=== PATIENT | male | born 1945 | race Caucasian/White ===

== ENCOUNTER 2020-05-30 11:41 | Outpatient (CLI) | payer MEDICARE, SELFPAY ==
[2020-05-30 11:59] LABS: Basophils Absolute Auto 0.02 K/mm3 (0.00-0.10); Basophils Percent Auto 0.3 % (0.0-1.0); Eosinophils Absolute Auto 0.03 K/mm3 (0.02-0.50); Eosinophils Percent Auto 0.5 % (1.0-6.0); Hematocrit 41.3 % (37.0-46.0); Hemoglobin 14.4 g/dL (12.4-15.3); Immature Granulocyte Absolute 0.05 K/mm3 (0.00-0.00); Immature Granulocyte Percent A 0.8 % (0.0-0.0); Lymphocytes Absolute Auto 1.12 K/mm3 (1.10-4.50); Lymphocytes Percent Auto 17.7 % (18.0-42.0); Mean Corpuscular HGB Conc 34.9 g/dL (32.0-36.0); Mean Corpuscular Hemoglobin 32.7 pg (27.0-31.0); Mean Corpuscular Volume 93.7 fL (78.0-102.0); Mean Platelet Volume 10.8 fl (8.7-11.0); Monocytes Absolute Auto 0.77 K/mm3 (0.10-0.90); Monocytes Percent Auto 12.2 % (2.0-11.0); Neutrophils Absolute Auto 4.3 K/mm3 (1.7-7.2); Neutrophils Percent Auto 68.5 % (50.0-70.0); Platelet Count Result 222 K/mm3 (150-420); Red Blood Count 4.41 M/mm3 (4.70-6.10); Red Cell Distribution Width 13.9 % (11.6-14.4); White Blood Count 6.3 K/mm3 (4.8-10.8)
[2020-05-30 12:03] LABS: Add Urine Microscopic? YES; Appearance Urine Clear (Clear); Bilirubin Urine Negative (Negative); Blood Urine Negative (Negative); Color Urine Yellow (Yellow); Glucose Urine UA Negative (Negative); Ketones Urine Negative (Negative); Leukocyte Esterase Ur Negative (Negative); Nitrate Urine Negative (Negative); Protein Urine Trace (Negative); Specific Grav Ur >= 1.030 (1.010-1.020); pH Urine 5.5 (5.0-8.0)
[2020-05-30 12:10] LABS: RBC Urine None seen /hpf (0-2); Squamous Epithelial Cell Urine Rare /hpf (Few); WBC Urine None seen /hpf (0-3)
[2020-05-30 12:11] LABS: Bacteria Urine Trace /hpf; Mucus Urine Few /lpf
[2020-05-30 12:30] LABS: Hemoglobin A1C 5.7 % (<5.7)
[2020-05-30 12:59] LABS: Alanine Aminotransferase 62 U/L (16-63); Albumin Level 4.4 g/dL (3.4-5.0); Alkaline Phosphatase 65 U/L (46-116); Anion Gap 10 mmol/L (8-16); Aspartate Amino Transferase 58 U/L (15-37); Bilirubin,Total 0.8 mg/dL (0.00-1.00); Blood Urea Nitrogen 20 mg/dL (7-18); CRP < 0.2 mg/dL (0.0-0.9); Calcium 9.3 mg/dL (8.5-10.1); Carbon Dioxide 27 mmol/L (21-32); Chloride 100 mmol/L (98-108); Cholesterol 97 mg/dL (0-200); Creatine Kinase 181 U/L (39-308); Estimated Glomerular Filt Rate > 60; Free T3 2.83 pg/mL (2.18-3.98); Free T4 Free Thyroxine 0.97 ng/dL (0.76-1.46); Glucose 119 mg/dL (70-99); HDL Direct 28 mg/dL (40-60); LDL Cholesterol Calculated 24 mg/dL (<130); Osmolality Calculated 287 mOsm/kg (285-295); Potassium 4.3 mmol/L (3.5-5.1); Sodium 137 mmol/L (136-145); Thyroid Stimulating Hormone 1.41 uIU/mL (0.36-3.74); Total Protein 7.5 g/dL (6.4-8.2); Triglycerides 223 mg/dL (0-150); Vitamin B12 358 pg/mL (193-986)
[2020-05-30 13:53] LABS: Erythrocyte Sedimentation Rate 14 mm/hr (0-20)
== END 2020-05-30 11:42 | disposition home or self-care (01) ==
LOC: CHSLAB 11:49
PROVIDERS: PCP Internal Medicine; Visit Provider Internal Medicine
DX: E78.2 Mixed hyperlipidemia (principal); I10 Essential (primary) hypertension; E11.51 Type 2 diabetes mellitus with diabetic peripheral angiopathy without gangrene; G62.9 Polyneuropathy, unspecified; K50.00 Crohn's disease of small intestine without complications
CPT/HCPCS: 36415; 80053; 80061; 81001; 82550; 82607; 83036; 84439; 84443; 84481; 85025; 85652; 86140

== ENCOUNTER 2020-12-12 11:59 | Outpatient (CLI) | payer MEDICARE, SELFPAY ==
--- NOTE | ~2020-12-12 | CT_ITS ---
EXAMINATION: CTA chest PE protocol DATE: 12/12/2020 13:30 INDICATION: Shortness of breath, recent [place] TECHNIQUE: Computed tomography angiography (CTA) of the chest was performed with 100 mL Omnipaque-350 intravenous contrast timed to evaluate the pulmonary arteries. Coronal maximum intensity projection 3D-reconstructions were created by the technologist. The dose-length product (DLP) was 789.96 mGy-cm. Automated exposure control and iterative reconstruction technique were employed. COMPARISON: None. FINDINGS: The pulmonary arteries are well-opacified. No pulmonary embolism is identified. There is mo derate emphysema. The lungs are free of acute opacities. There is no pleural effusion or pneumothorax . No pathologically enlarged thoracic lymph nodes are identified. The heart size is normal. There is moderate thoracic spondylosis. IMPRESSION: 1. No pulmonary embolism or acute cardiopulmonary abnormality. Reviewed, dictated and finalized at location A.
[2020-12-12 12:18] LABS: Hemoglobin 8.7 g/dL (12.4-15.3); Immature Platelet Fraction Pct 14.2 % (1.0-7.0); Mean Corpuscular HGB Conc 33.5 g/dL (32.0-36.0); Mean Corpuscular Hemoglobin 33.9 pg (27.0-31.0); Mean Corpuscular Volume 101.2 fL (78.0-102.0); Mean Platelet Volume 13.6 fl (8.7-11.0); Platelet Count Result 179 K/mm3 (150-420); Red Blood Count 2.57 M/mm3 (4.70-6.10); Red Cell Distribution Width 16.8 % (11.6-14.4); Reticulocyte Hemoglobin Conten 35.4 pg (28.0-35.0); Reticulocyte Percent 1.89 % (0.50-1.50); Reticulocytes Absolute 0.05 M/mm3 (0.02-0.1); White Blood Count 5.1 K/mm3 (4.8-10.8)
[2020-12-12 12:39] LABS: Iron 163 ug/dL (65-175); Percent Iron Saturation 62 % (12-57)
[2020-12-12 12:44] LABS: Band Neutrophils Percent 0 % (0-6); Basophils Percent Manual 0 % (0-1); Eosinophils Percent Manual 2 % (1-6); Lymphocytes Absolute Manual 1.68 K/mm3 (1.1-4.5); Lymphocytes Percent Manual 33 % (18-44); Metamyelocytes Percent 7 %; Monocytes Absolute Manual 0.76 K/mm3 (0.1-0.90); Monocytes Percent Manual 15 % (3-9); Myelocytes Percent 9 %; Neutrophils Absolute Manual 1.73 K/mm3 (1.3-6.7); Neutrophils Percent Manual 34 % (46-73); Total Cells Counted 100
[2020-12-12 12:45] LABS: Nucleated Red Blood Cells 5 %; Platelet Estimate Adequate (Adequate)
[2020-12-12 13:04] LABS: Alanine Aminotransferase 41 U/L (16-63); Albumin Level 3.7 g/dL (3.4-5.0); Alkaline Phosphatase 64 U/L (46-116); Anion Gap 14 mmol/L (8-16); Aspartate Amino Transferase 32 U/L (15-37); Bilirubin,Total 0.8 mg/dL (0.00-1.00); Blood Urea Nitrogen 17 mg/dL (7-18); Calcium 8.8 mg/dL (8.5-10.1); Carbon Dioxide 22 mmol/L (21-32); Chloride 103 mmol/L (98-108); Creatine Kinase 31 U/L (39-308); Estimated Glomerular Filt Rate 60; Glucose 145 mg/dL (70-99); NT Pro B Type Natriuretic Pept 969 pg/mL (0-125); Osmolality Calculated 292 mOsm/kg (285-295); Potassium 4.2 mmol/L (3.5-5.1); Sodium 139 mmol/L (136-145); Total Protein 7.1 g/dL (6.4-8.2)
[2020-12-12 13:06] LABS: Ferritin > 1000 ng/mL (26-388)
[2020-12-12 13:08] LABS: Troponin I 147.2 ng/L (0.00-60.4)
== END 2020-12-12 12:00 | disposition home or self-care (01) ==
LOC: CHSLAB 12:05
PROVIDERS: PCP Internal Medicine; Visit Provider Internal Medicine
DX: R06.00 Dyspnea, unspecified (principal); I25.10 Atherosclerotic heart disease of native coronary artery without angina pectoris; D64.9 Anemia, unspecified
CPT/HCPCS: 36415; 71275; 80053; 82550; 82553; 82728; 83540; 83550; 83880; 84484; 85025; 85046; 85055; Q9967

== ENCOUNTER → 2021-01-08 14:53 | Emergency (ER) | payer MEDICARE, SELFPAY ==
--- NOTE | 2021-01-08 16:11 | ED.ABDPAIN ---
HPI - Abdominal Pain General Stated Complaint: stomach pain History of Present Illness HPI narrative: patient arrived and told the nurse that he was here for outpatient labs and studies. He said he was not stain and he would go to [facility]. He left before nurse could even finish her triage. Discharge Plan Discharge Clinical Impression: Abdominal pain Qualifiers: Abdominal location: generalized Qualified Code(s): R10.84 - Generalized abdominal pain Patient Disposition: Left Without Being Sn Triaged Follow-up/Referrals: Octavia Taylor MD [Primary Care Provider] - Time of Disposition: 15:30
== END | disposition left against medical advice (07) ==
PROVIDERS: Emergency Provider Emergency Medicine; PCP Internal Medicine
DX: R10.84 Generalized abdominal pain (principal)
CPT/HCPCS: 99199

== ENCOUNTER 2021-01-31 16:45 | Outpatient (CLI) | payer MEDICARE, SELFPAY ==
[2021-01-31 17:08] LABS: Hematocrit 28.5 % (37.0-46.0); Immature Platelet Fraction Pct 14.1 % (1.0-7.0); Mean Corpuscular HGB Conc 31.6 g/dL (32.0-36.0); Mean Corpuscular Hemoglobin 28.8 pg (27.0-31.0); Mean Corpuscular Volume 91.1 fL (78.0-102.0); Mean Platelet Volume 12.7 fl (8.7-11.0); Platelet Count Result 102 K/mm3 (150-420); Red Blood Count 3.13 M/mm3 (4.70-6.10); Red Cell Distribution Width 15.5 % (11.6-14.4); White Blood Count 6.9 K/mm3 (4.8-10.8)
[2021-01-31 18:03] LABS: Band Neutrophils Percent 0 % (0-6); Basophils Percent Manual 0 % (0-1); Eosinophils Percent Manual 0 % (1-6); Lymphocytes Absolute Manual 1.65 K/mm3 (1.1-4.5); Lymphocytes Percent Manual 24 % (18-44); Metamyelocytes Percent 13 %; Monocytes Absolute Manual 1.24 K/mm3 (0.1-0.90); Monocytes Percent Manual 18 % (3-9); Myelocytes Percent 5 %; Neutrophils Absolute Manual 2.76 K/mm3 (1.3-6.7); Neutrophils Percent Manual 40 % (46-73); Platelet Estimate Adequate (Adequate)
[2021-01-31 18:49] LABS: Alanine Aminotransferase 78 U/L (16-63); Albumin Level 2.7 g/dL (3.4-5.0); Alkaline Phosphatase 140 U/L (46-116); Anion Gap 11 mmol/L (8-16); Aspartate Amino Transferase 72 U/L (15-37); Bilirubin,Total 1.6 mg/dL (0.00-1.00); Blood Urea Nitrogen 13 mg/dL (7-18); Calcium 8.2 mg/dL (8.5-10.1); Carbon Dioxide 24 mmol/L (21-32); Chloride 97 mmol/L (98-108); Estimated Glomerular Filt Rate > 60; Glucose 96 mg/dL (70-99); Iron 77 ug/dL (65-175); Osmolality Calculated 274 mOsm/kg (285-295); Percent Iron Saturation 68 % (12-57); Potassium 3.9 mmol/L (3.5-5.1); Sodium 132 mmol/L (136-145); Total Protein 6.5 g/dL (6.4-8.2)
[2021-01-31 18:50] LABS: Ferritin > 1000 ng/mL (26-388)
== END 2021-01-31 16:46 | disposition home or self-care (01) ==
LOC: CHSLAB 16:47
PROVIDERS: PCP Internal Medicine; Visit Provider Internal Medicine
DX: D64.9 Anemia, unspecified (principal); I10 Essential (primary) hypertension
CPT/HCPCS: 36415; 80053; 82728; 83540; 83550; 85025; 85055; 85060